=== PATIENT | male | born 1990 | race Two or more races ===

== ENCOUNTER 2019-04-02 21:22 | Emergency (ER) | payer MEDICAID, OTHER ==
[~2019-04-02] VITALS: Ht 182.9 cm; Wt 99.8 kg
--- NOTE | 2019-04-02 23:02 | NUR ---
PT ANDREEASELElla C/O PT STATES,"FEELING POISONED. NEIGHBORS HINTED PT WILL BE IN A WHEELCHAIR IN A MONTH." PT AOX4 RR EVEN AND UNLABORED. NO SOB NOTED. NO NVD AT THIS TIME. NO ACUTE DISTRESS NOTED. URINE COLLECTED AND SENT TO LAB
[2019-04-02 23:25] LABS: BASOPHILS % (AUTO) 0.2 % (0.0-2.0); HEMATOCRIT 48 % (39-51); HEMOGLOBIN 16.4 g/dL (13.5-17.5); LYMPHOCYTES # (AUTO) 0.8 /CMM (0.8-4.8); LYMPHOCYTES % (AUTO) 8.9 % (20.0-44.0); MEAN CORPUSCULAR HGB CONC 35 g/dl (31.0-36.0); MEAN CORPUSCULAR VOLUME 92 fL (80-96); MONOCYTES # (AUTO) 0.8 /CMM (0.1-1.30); MONOCYTES % (AUTO) 8.9 % (2.0-12.0); NEUTROPHILS # (AUTO) 7.7 /CMM (1.8-8.9); PLATELET COUNT (AUTO) 303 /CMM (150-450); RED BLOOD CELL COUNT(AUTO) 5.16 MIL/uL (4.5-6.0); WHITE BLOOD COUNT (AUTO) 9.4 K/uL (4.3-11.0)
[2019-04-02 23:45] LABS: ALBUMIN 4.6 g/dL (3.4-5.0); BILIRUBIN,TOTAL 0.9 mg/dL (0.2-1.0); CALCIUM, SERUM 9.3 mg/dL (8.5-10.1); CREATININE 1.4 mg/dL (0.6-1.3); POTASSIUM 4.3 mmol/L (3.5-5.1); SALICYLATE 0.5 mg/dL (2.8-20.0); TOTAL PROTEIN, SERUM 7.8 g/dL (6.4-8.2)
--- NOTE | 2019-04-03 00:09 | NUR ---
Patient eloped from facility. ER MD notified.
[2019-04-03 00:20] VITALS: BP 144/77
== END 2019-04-03 00:21 | disposition left against medical advice (07) ==
LOC: ER 21:25
DX: H11.89 Other specified disorders of conjunctiva (principal); R50.9 Fever, unspecified; F41.9 Anxiety disorder, unspecified
CPT/HCPCS: 36415; 80053; 80329; 85025; 85610; 99283; G0480

== ENCOUNTER 2019-04-04 06:18 | Emergency (ER) | payer MEDICAID, OTHER ==
[~2019-04-04] VITALS: Ht 182.9 cm; Wt 90.7 kg
[2019-04-04] MEDS ORDERED: OLANZAPINE 5 MG TABLET PO ONE (07:00)
[2019-04-04] MEDS ORDERED: OLANZAPINE 5 MG TABLET ONE (07:05)
--- NOTE | 2019-04-04 07:05 | NUR ---
URINE SPECIMEN COLLECTED AND SENT TO LAB.
--- NOTE | 2019-04-04 07:13 | NUR ---
NAPOLEON FROM HOME TO ER BED 7. AAOX4. MANIC, PARANOID AND ANXIOUS. AMBULATORY. NO RESP DISTRESS NOTED. C/O LEAD POISONING. PT REPORTS THAT HE GOT AN ANONYMOUS TEXT THAT HE HAS LEAD POISONED THRU HIS FOOD. PT REPORTS SYMPTOMS SLEEPLESSNESS, LETHARGY AND POOR APPETIE. MD WAS AT BEDSIDE FOR EVAL. ORDERS RECEIVED NOTED AND CARRIED OUT.
[2019-04-04 07:26] LABS: APPEARANCE,URINE CLEAR (CLEAR); BILIRUBIN,URINE SMALL (NEGATIVE); BLOOD, URINE NEGATIVE Ery/uL (NEGATIVE); COLOR,URINE DARK YELLO (YELLOW); KETONES,URINE 40 (NEGATIVE); LEUKOCYTE ESTERASE ,URINE NEGATIVE (NEGATIVE); NITRITE, URINE NEGATIVE (NEGATIVE); PH,URINE 5.5 (5.0-8.0); PROTEIN,URINE TRACE mg/dl (NEGATIVE); UGLUCOSE NEGATIVE (NEGATIVE); UROBILINOGEN,URINE 0.2 EU/dL (0.2)
[2019-04-04 07:36] LABS: BASOPHILS % (AUTO) 0.5 % (0.0-2.0); EOSINOPHILS % (AUTO) 0.2 % (0.0-6.0); HEMATOCRIT 47 % (39-51); HEMOGLOBIN 16.1 g/dL (13.5-17.5); LYMPHOCYTES # (AUTO) 1.4 /CMM (0.8-4.8); MEAN CORPUSCULAR HGB CONC 34 g/dl (31.0-36.0); MEAN CORPUSCULAR VOLUME 92 fL (80-96); MONOCYTES # (AUTO) 0.6 /CMM (0.1-1.30); MONOCYTES % (AUTO) 9.9 % (2.0-12.0); NEUTROPHILS # (AUTO) 4.2 /CMM (1.8-8.9); NEUTROPHILS % (AUTO) 67.4 % (43.0-81.0); PLATELET COUNT (AUTO) 279 /CMM (150-450); RED BLOOD CELL COUNT(AUTO) 5.12 MIL/uL (4.5-6.0); WHITE BLOOD COUNT (AUTO) 6.3 K/uL (4.3-11.0)
[2019-04-04 07:43] LABS: CALCIUM, SERUM 9.1 mg/dL (8.5-10.1); CARBON DIOXIDE 24 mmol/L (21-32); CHLORIDE 104 mmol/L (98-107); CREATININE 1.4 mg/dL (0.6-1.3); GLUCOSE 111 mg/dL (74-106); POTASSIUM 3.8 mmol/L (3.5-5.1); SODIUM SERUM 141 mmol/L (136-145); UREA NITROGEN, BLOOD 19 mg/dL (7-18)
[2019-04-04 07:50] LABS: ALANINE AMINOTRANSFERASE 100 U/L (12-78); ALBUMIN 4.8 g/dL (3.4-5.0); ALCOHOL, BLOOD < 3 mg/dL (0-0); ALKALINE PHOSPHATASE 75 U/L (46-116); ASPARTATE AMINOTRANSFERASE 32 U/L (15-37); BILIRUBIN,DIRECT 0.3 mg/dL (0.0-0.2); BILIRUBIN,TOTAL 1.5 mg/dL (0.2-1.0)
--- NOTE | 2019-04-04 08:15 | NUR ---
CALLED [employer] CLERK FOR EVAL.
[2019-04-04 08:34] LABS: ACETAMINOPHEN 0 ug/ml (10-30); SALICYLATE 0.2 mg/dL (2.8-20.0)
--- NOTE | 2019-04-04 09:20 | NUR ---
Pinky LCWS on site for eval
--- NOTE | 2019-04-04 10:22 | NUR ---
PT. VERBALIZED UNDERSTANDING OF AFTERCARE INSTRUCTIONS. Patient discharged to home in stable condition. Written and verbal after care instructions given to patient and family at bedside. Patient and family verbalizes understanding of instruction.
[2019-04-04 10:24] VITALS: BP 145/81
--- NOTE | 2019-04-04 10:25 | NUR ---
Tay escalona in ED - 04/04/19 at 1025 by URIEL Patient discharged to home in stable condition. Written and verbal after care instructions given. Patient verbalizes understanding of instruction.
== END 2019-04-04 10:25 | disposition home or self-care (01) ==
LOC: ER 06:21
DX: F60.0 Paranoid personality disorder (principal); F22 Delusional disorders
CPT/HCPCS: 36415; 80048; 80076; 80305; 80307; 80329; 81001; 83655; 85025; 99284; G0480; 81000-TC

== ENCOUNTER 2019-04-29 22:04 | Emergency (ER) | payer OTHER ==
[~2019-04-29] VITALS: Ht 182.9 cm; Wt 104.3 kg
--- NOTE | 2019-04-29 23:40 | NUR ---
PT AAOX4. AMBULATORY C/O "I THINK I HAVE MERCURY POISONING AND THE GOVERNMENT IS DOING IT TO ME" +SI, -HI, -PLAN. PER PATIENT "I HAVE NOT SLEPT IN A COUPLE OF DAYS, I FEEL LIKE CRAP." NO ACUTE DISTRESS NOTED. MD AT BEDSIDE FOR EVAL.
--- NOTE | 2019-04-29 23:40 | NUR ---
Pt in [facility] and belongings collected.
--- NOTE | 2019-04-29 23:43 | NUR ---
URINE COLLECTED AND SENT TO LAB
--- NOTE | 2019-04-29 23:43 | NUR ---
PHLEB AT BEDSIDE FOR BLOOD DRAW
[2019-04-29 23:47] LABS: BASOPHILS % (AUTO) 0.3 % (0.0-2.0); EOSINOPHILS % (AUTO) 1.2 % (0.0-6.0); HEMATOCRIT 44 % (39-51); HEMOGLOBIN 14.7 g/dL (13.5-17.5); LYMPHOCYTES # (AUTO) 1.5 /CMM (0.8-4.8); LYMPHOCYTES % (AUTO) 22.2 % (20.0-44.0); MEAN CORPUSCULAR HGB CONC 34 g/dl (31.0-36.0); MEAN CORPUSCULAR VOLUME 94 fL (80-96); MONOCYTES # (AUTO) 0.6 /CMM (0.1-1.30); MONOCYTES % (AUTO) 8.9 % (2.0-12.0); NEUTROPHILS # (AUTO) 4.5 /CMM (1.8-8.9); NEUTROPHILS % (AUTO) 67.4 % (43.0-81.0); PLATELET COUNT (AUTO) 284 /CMM (150-450); RED BLOOD CELL COUNT(AUTO) 4.65 MIL/uL (4.5-6.0); WHITE BLOOD COUNT (AUTO) 6.7 K/uL (4.3-11.0)
[2019-04-29 23:50] LABS: APPEARANCE,URINE Clear (CLEAR); BILIRUBIN,URINE Negative (NEGATIVE); BLOOD, URINE Negative Ery/uL (NEGATIVE); COLOR,URINE Yellow (YELLOW); KETONES,URINE Negative (NEGATIVE); LEUKOCYTE ESTERASE ,URINE Negative (NEGATIVE); NITRITE, URINE Negative (NEGATIVE); PROTEIN,URINE Negative (NEGATIVE); UGLUCOSE 100 MG/DL mg/dL (NEGATIVE); UROBILINOGEN,URINE 0.2 EU/dL (0.2)
[2019-04-30 00:12] LABS: ACETAMINOPHEN < 2 ug/ml (10-30); ALANINE AMINOTRANSFERASE 80 U/L (12-78); ALBUMIN 3.9 g/dL (3.4-5.0); ALCOHOL, BLOOD < 3 mg/dL (0-0); ALKALINE PHOSPHATASE 68 U/L (46-116); ASPARTATE AMINOTRANSFERASE 31 U/L (15-37); BILIRUBIN,DIRECT 0.1 mg/dL (0.0-0.2); BILIRUBIN,TOTAL 0.5 mg/dL (0.2-1.0); CALCIUM, SERUM 8.6 mg/dL (8.5-10.1); CARBON DIOXIDE 32 mmol/L (21-32); CHLORIDE 104 mmol/L (98-107); CREATININE 1.1 mg/dL (0.6-1.3); GLUCOSE 150 mg/dL (74-106); POTASSIUM 3.7 mmol/L (3.5-5.1); SALICYLATE 1.2 mg/dL (2.8-20.0); SODIUM SERUM 139 mmol/L (136-145); TOTAL PROTEIN, SERUM 6.7 g/dL (6.4-8.2); UREA NITROGEN, BLOOD 17 mg/dL (7-18)
--- NOTE | 2019-04-30 01:00 | NUR ---
Patient is resting comfortably in bed with eyes closed. Easily aroused.
--- NOTE | 2019-04-30 02:30 | NUR ---
Patient is resting comfortably in bed with eyes closed. Easily aroused.
--- NOTE | 2019-04-30 03:50 | NUR ---
Patient is resting comfortably in bed with eyes closed. Easily aroused.
--- NOTE | 2019-04-30 05:10 | NUR ---
Patient is resting comfortably in bed with eyes closed. Easily aroused.
--- NOTE | 2019-04-30 07:19 | NUR ---
Patient is resting comfortably in bed. Easily aroused. Pt awake.
--- NOTE | 2019-04-30 08:00 | NUR ---
PATIENT RESTING, GIVEN FOOD TRAY FOR BREAKFAST. NO DISTRESS NOTED. WILL CONTINUE TO MONITOR.
--- NOTE | 2019-04-30 11:45 | NUR ---
PATIENT PROVIDED FOOD TRAY, PATIENT STILL +SI. NEEDS ATTENDED, WILL CONTINUE TO MONITOR.
[2019-04-30] MEDS ORDERED: CARI3CAP PO (13:16)
--- NOTE | 2019-04-30 15:45 | NUR ---
Patient is resting comfortably in bed with eyes closed. Easily aroused. VSS
--- NOTE | 2019-04-30 16:00 | NUR ---
LYLY contacted Cruz at [facility] to follow up regarding pt's acceptance at [facility]. Pt has been in the ED for over 17 + hours waiting for a bed at [facility] location. Cruz informed LYLY, he will contact them right away. LYLY also contacted [facility] and spoke with Gabriella who informed LYLY that they are aware of pt needing acceptance at [place], however there has been a delay in pending discharges at [place] which is delaying the process. Gabriella informed LYLY she will contact [facility] ED as soon as she speaks with the nursing track inspecting supervisor at [facility]. LYLY updated RN Uday in ED and informed him to call [facility] within an hour for an update.
--- NOTE | 2019-04-30 16:25 | NUR ---
[facility] INTAKE CALLED. NO BEDS AVAILABLE STILL AND THEY WILL FAXED PT CLINICALS TO OTHER FACILITY.
--- NOTE | 2019-04-30 17:24 | NUR ---
Romulo Gutierrez from [facility], ETA is 2000 to [facility] . Ticket # [id number]
--- NOTE | 2019-04-30 17:29 | NUR ---
report given to nurse garrett at [facility]. pt going to room 601.A but needs to drop by admitting
--- NOTE | 2019-04-30 20:18 | NUR ---
updated ETA [id number]
--- NOTE | 2019-04-30 21:07 | NUR ---
pt no longer wishing to go to [facility]. pt denies si/hi. pt denies any medical compaint. Patient discharged to home in stable condition. Written and verbal after care instructions given. Patient verbalizes understanding of instruction.Patient is awake and alert to self, day, and place. pt ambulatory with a steady gait
[2019-04-30 21:08] VITALS: BP 132/87
== END 2019-04-30 21:08 | disposition home or self-care (01) ==
LOC: ER 22:04
DX: F22 Delusional disorders (principal); R45.851 Suicidal ideations; F10.10 Alcohol abuse, uncomplicated; Y90.9 Presence of alcohol in blood, level not specified
CPT/HCPCS: 36415; 80048; 80076; 80305; 80307; 80329; 81001; 85025; 99285; G0480; 81000-TC